=== PATIENT | male | born 1985 | race Caucasian/White ===

== ENCOUNTER → 2020-04-26 | Outpatient (CLI) | payer OTHER, SELFPAY | LOC: M LABSMTC 10:42 | PROVIDERS: ATTEND Orthopaedic Surgery | DX: Z20.828 Contact with and (suspected) exposure to other viral communicable diseases (principal); Z11.59 Encounter for screening for other viral diseases ==

== ENCOUNTER 2025-04-03 08:52 | Emergency (ER) | payer OTHER ==
[~2025-04-03] VITALS: Ht 188 cm; Wt 130.7 kg
[2025-04-03] MEDS ORDERED: IBUP200T46 PO (08:59)
[2025-04-03] MEDS ORDERED: AMIT10TA11 PO (08:59)
[2025-04-03 09:47] LABS: BASO # 0.1 10^3/uL (0.0-0.2); BASO % 0.4 % (0.0-1.0); EOS # 0.1 10^3/uL (0.0-0.5); EOS % 0.6 % (0.0-3.0); LYMPH # 1.4 10^3/uL (1.5-5.0); LYMPH % 12.1 % (24.0-44.0); MONO # 0.7 10^3/uL (0.0-0.8); MONO % 5.7 % (2.0-8.0); NEUTROPHILS # 9.4 10^3/uL (1.5-8.5); NEUTROPHILS % 80.9 % (36.0-66.0); PLATELET COUNT, AUTOMATED 330 10^3/uL (150-450)
[2025-04-03 10:19] LABS: ALT/SGPT 83.0 U/L (7.0-40); AST/SGOT 38.0 U/L (<34)
[2025-04-03] MEDS: PANTOPRAZOLE 40MG VIAL IV ONE (10:24)
[2025-04-03] MEDS: SUCRALFATE 1 GM TAB PO ONE (10:24)
[2025-04-03 10:50] LABS: CK-MB VALUE MASS 1.0 NG/ML (<3.6)
[2025-04-03 10:51] LABS: CPK CREATINE PHOSPHOKINASE 212.0 U/L (46-171); MB/CK RELATIVE INDEX 0.47 (< OR =4)
[2025-04-03] MEDS: KETOROLAC 30 MG/ML 1 ML VIAL IV ONE (13:00)
[2025-04-03 13:04] LABS: CK-MB VALUE MASS < 1.0 NG/ML (<3.6)
[2025-04-03 13:05] LABS: CPK CREATINE PHOSPHOKINASE 172 U/L (46-171)
[2025-04-03] MEDS ORDERED: ACET-910 PO (14:16)
[2025-04-03] MEDS ORDERED: HOME MED LIST COMPLETE! XX SCH (14:20)
[2025-04-03] MEDS: NS (Normal Saline) 0.9% 1,000 ML IV ONE (16:49)
[2025-04-03] MEDS: ONDANSETRON 4MG/2ML VIAL IV ONE (19:49)
[2025-04-03] MEDS: MORPHINE 4 MG/ML 1 ML VIAL IV PRN (19:49)
[2025-04-03] MEDS ORDERED: AMOX875T2 PO (20:19)
[2025-04-03] MEDS ORDERED: KETO-204 PO (20:19)
[2025-04-03] MEDS: OXYCODONE/APAP 5MG/325MG(HOME DOSE PACK) PO ONE (20:26)
[2025-04-03] MEDS: AUGMENTIN 875 MG TAB PO ONE (20:26)
[2025-04-03] MEDS: ONDANSETRON 4MG ORAL DISINTEGRATING TAB PO ONE (20:26)
[2025-04-03 20:30] VITALS: BP 128/58; TEMP 97.2; O2SAT 96
== END 2025-04-03 20:38 | disposition home or self-care (01) ==
LOC: M ED 08:52
DX: K80.00 Calculus of gallbladder with acute cholecystitis without obstruction (principal); K76.0 Fatty (change of) liver, not elsewhere classified; Z79.1 Long term (current) use of non-steroidal anti-inflammatories (NSAID); Z79.899 Other long term (current) drug therapy; Z79.2 Long term (current) use of antibiotics
CPT/HCPCS: 71045; 74181; 76705; 80047; 80076; 82550; 82553; 83605; 83690; 84484; 85025; 93005; 96361; 96374; 96375; 99285; J1885; J2405; J2470